=== PATIENT | female | born 1990 | race Hispanic/Latino ===

== ENCOUNTER 2025-08-24 09:12 | Emergency (ER) | payer BC ==
[~2025-08-24] VITALS: Ht 157.5 cm; Wt 71.7 kg
[~2025-08-24 09:12] MED LIST: ACET-2079 PO; CYCL-309 PO; NAPR-1180 PO
--- NOTE | 2025-08-24 10:06 | ERN ---
General Chief Complaint: Abdominal Pain Stated Complaint: ABDOMINAL PAIN Time Seen by MD: 09:32 History of Present Illness Initial Comments This is a 35-year-old female presented to emergency department with complaints of abdominal pain. She has a known history of abdominal wall hernia which occurred after the she had 2 years back. Previously she used to have bulging of the hernia, which used to get reduced on its own. The pain was severe in intensity this morning, 10/10 and she presented to urgent Care where she was given pain medication. After the medication her pain gradually subsided, the hernia reduced on its own. She does not complain of nausea, vomiting, abdominal distention, constipation and inability to pass flatus. Allergies: Coded Allergies: No Known Allergies (Unverified Allergy, Unknown, 02/10/23) Home Meds Active Scripts Cyclobenzaprine HCl (Cyclobenzaprine HCl) 10 Mg Tablet, 10 MG PO HS PRN for muscle spasm/tension, #7 TAB Prov:PATSY CARDOSO 07/21/23 Naproxen (Naprosyn) 500 Mg Tablet, 500 MG PO BIDPC PRN for PAIN for 5 Days, #10 TAB 0 Refills Prov:PATSY CARDOSO 07/21/23 Reported Medications Acetaminophen with Codeine (Acetaminophen-Cod #3 Tablet) 1 Each Tablet, 1-2 TAB PO Q6H PRN for PAIN LEVEL 5 TO 10, #30 TAB 02/13/23 Past Medical History Past Medical History: No Pertinent History Medical History Other: HX OF HERNIA Past Surgical History: Female( History) LMP: Jul 30, 2025 ROS Dictation REVIEW OF SYSTEMS CONSTITUTIONAL: Denies fever, chills, or night sweats. No unintentional weight loss reported. NEUROLOGICAL: Denies headache, sensory deficit, vertigo/spinning sensation, gait abnormalities, or tremors. ENT: No hearing loss, otalgia, otorrhea, rhinitis, rhinorrhea, hoarseness, or sore throat. CARDIOVASCULAR: Denies any exertional angina, dyspnea on exertion, orthopnea, paroxysmal nocturnal dyspnea, palpitations, life-threatening arrhythmias, claudication. PULMONARY:Denies chest pain, Denies any shortness of breath, GASTROINTESTINAL: Had abdominal pain earlier (improved now): Denies nausea, vomiting, constipation, diarrhea. No hematemesis or melena. GENITOURINARY: Denies frequency, urgency, nocturia, hematuria or incontinence. Physical Exam Physical Exam Dictation PHYSICAL EXAM GENERAL APPEARANCE: In distress due to pain. The patient is awake, alert, and oriented, in no acute cardiopulmonary distress. NEUROLOGICAL: Alert and oriented x3, moving all extremities spontaneously. No focal deficit. HEENT: Face is symmetric. Pupils are equal and reactive. Extraocular movements are intact. CHEST: Normal chest expansion. LUNGS: Absence of any rales, rhonchi or any wheezing. CARDIOVASCULAR: Regular. S1 and S2 normal. No appreciable rubs, murmurs or gallops. ABDOMEN: Nondistended. Nontender. She has normal bowel sounds. No guarding and rigidity. No visible hernia bulges. EXTREMITIES: No cyanosis, clubbing or edema. Results Laboratory and Microbiology Labs Reviewed?: Yes MDM Patient presented with abdominal pain and has a known history of hernia. On evaluation she is hemodynamically stable, afebrile and currently asymptomatic after receiving medical pain medication at urgent care. Abdomen is soft, nontender and nondistended with no signs of peritonitis. Given benign physical exam, normal vital signs, resolution of symptoms, acute surgical abdominal is unlikely at this time the most probable cause of pain is transient or near discomfort or nonspecific abdominal pain. An EKG was offered to rule out atypical presentation but the patient declined. Patient is counseled on warning signs and the importance of prompt re-evaluation if his symptom occurs. Instructions: * Avoid heavy lifting, straining or constipation * Proper use of abdominal binder: Avoid overly tight compression * Maintain hydration and regular bowel habits * Return to ED immediately for severe or persistent abdominal pain, vomiting, fever, redness or swelling over hernia site, nonreducible balls, or any new concerning symptoms * Follow up with PCP in 2-3 days * Out patient's General surgery referral for evaluation of hernia and possible elective repair Condition: Stable, improved at time of discharge ED Course Orders Procedure Category Date Status Time ,Urine Test LAB 08/24/25 In Process 09:15 12 Lead Ekg Tracing- EKG 08/24/25 Logged Technical 09:32 Vital Signs Date Time Temp Pulse Resp B/P (MAP) Pulse Ox O2 Delivery O2 Flow Rate FiO2 08/24/25 09:25 98.4 85 12 116/64 100 Room Air* 0 21 08/24/25 09:13 98.2 78 20 136/98 100 0 DX & DISP Disposition: Discharge Departure Impression: Primary Impression: Abdominal wall hernia Condition: Stable Additional Instructions: Instructions: Avoid heavy lifting, straining or constipation Proper use of abdominal binder: Avoid overly tight compression Maintain hydration and regular bowel habits Return to ED immediately for severe or persistent abdominal pain, vomiting, fever, redness or swelling over hernia site, nonreducible balls, or any new concerning symptoms Follow up with PCP in 2-3 days Out patient's General surgery referral for evaluation of hernia and possible elective repair Referrals: WILFRIDO NICK MD (PCP) LUANA SHEPHERD MD Time of Disposition: 10:19 NUZHAT GARCIA MD Aug 24, 2025 10:06 MILAN GOODWIN MD Aug 24, 2025 10:08
[2025-08-24 10:46] VITALS: BP 103/67; PULSE 80; RESP 17; TEMP 98; O2SAT 100
== END 2025-08-24 10:45 | disposition home or self-care (01) ==
LOC: EDH 09:12
DX: K43.9 Ventral hernia without obstruction or gangrene (principal)
CPT/HCPCS: 81025; 99282; 99283